=== PATIENT | male | born 1995 | race African-American/Black ===

== ENCOUNTER 2017-01-01 23:46 | Emergency (ER) | payer OTHER ==
[~2017-01-01] VITALS: Ht 175.3 cm; Wt 77.3 kg
[~2017-01-01 23:46] MED LIST: ALBU18HF INH; ALBU2.5V4 INHALATION; ALBU8.5H2 INHALATION; PRED50TA PO
[2017-01-02] VITALS (7 sets, daily range): BP systolic 114–134; BP diastolic 48–78; PULSE 71–128; RESP 18–26; O2SAT 95–100
[2017-01-02] MEDS ORDERED: Albuterol 2.5 mg/3 mL Inhalation Solution NEB ONE ×3 (00:05→03:30)
[2017-01-02] MEDS ORDERED: predniSONE 20 mg Tablet PO ONE (00:05)
[2017-01-02] MEDS ORDERED: Albuterol-Ipratropium 3 mL Inhalation Solution NEB ONE (00:05)
--- NOTE | 2017-01-02 00:05 | ED.REPORT ---
HPI-Dyspnea / Wheezing Date of Service Jan 02, 2017 ED Provider: Calvin Peacock MD Pt is a 21 year old male with a hx of asthma presenting to the ED complaining of SOB and wheezing onset just prior to arrival. He also complains of chest pain , and denies fever. Pt states that he was last on steroids months ago. Nursing Notes Stated Complaint: CHEST PAIN,SHORT OF BREATH,HAS ASTHMA Chief Complaint: Respiratory Complaints Nursing Notes Reviewed: Yes Allergies: Coded Allergies: shellfish derived (Verified Allergy, Unknown, 01/02/17) Scheduled Albuterol HFA (Proair HFA) 8.5 Gm Hfa.aer.ad 2 PUFFS INHALATION Q4H Albuterol Neb Soln (Albuterol Neb Soln) 2.5 Mg/3 Ml Vial.neb 2.5 MG INHALATION Q4H Prednisone (PredniSONE) 50 Mg Tablet 50 MG PO DAILY Prednisone (PredniSONE) 20 Mg Tablet 20 MG PO TID Scheduled PRN Albuterol Neb Soln (Albuterol Neb Soln) 2.5 Mg/3 Ml Vial.neb 2.5 MG INHALATION Q4H PRN PRN For Wheezing Albuterol Sulfate (Ventolin HFA Inhaler) 200 Puff/18 Gm Inhaler 1 PUFF INH Q4 PRN PRN For Wheezing General Time Seen by MD: 00:02 Chief Complaint Asthma attack Hx Obtained From: Patient Arrived By: Walk-in Caused by: Spontaneous Sudden in Onset?: Yes Onset Occurred: Just prior to arrival Context of Onset: Asthma attack Symptom Duration: Since onset Location: : Chest left: Chest right Quality: Painful Severity: Current: Mild Severity: Maximum: Mild Recent Healthcare: No recent doctor visit, No recent hospitalization Similar Sx Previous: Yes Past Medical History Past Medical History Reports Asthma since 2-3 years old Past Surgical History None reported Smoking History Light Tobacco Smoker Social History Reports smoking Marijuana occasionally Alcohol Use: Denies alcohol use Drug Use: THC Occupation Works at [employer] Ambulatory Status Independent Review of Systems Constitutional: Denies: Fever Respiratory: Reports: Shortness of breath, Wheezing Cardiovascular: Reports: Chest pain Complete sys rev & neg: except as marked. Physical Exam Initial Vital Signs Vital Signs (First) Date Time Temp Pulse Resp B/P Pulse Ox O2 Delivery O2 Flow Rate FiO2 01/02/17 00:04 107 25 134/78 95 Room Air 01/02/17 00:34 8 01/02/17 06:16 37.1 Initial VS: Reviewed, Vital signs abnormal Head / Eyes: Atraumatic, Normocephalic, PERRL ENT: Mucous membranes moist, Conjunctiva normal, No scleral icterus Abdomen / GI: Soft, Non-tender, No guarding, No rebound, No distention Extremities: Vascular intact, Neuro intact, No swelling, No tenderness Skin: Warm, Dry, No cyanosis Neurologic: Alert, Oriented, Nonfocal Psychiatric: Mood/affect normal, Behavior normal, Normal thought content General/Constitutional: Awake, Alert, Well appearing Respiratory / Chest: Atraumatic Wheezing / Retractions: Positive: Wheeze insp/exp diffuse (Tight) All cordoba. No focal changes in breath sounds Cardiovascular: Heart rate NL, Regular rhythm, Heart sounds NL, Peripheral circulation NL Interpretation & Diagnostics Lab Results Interpretation Test 01/02/17 00:41 Hold Purple Top Tube Received (Received) Hold Blue Top Tube Received (Received) Hold Red Top Tube Received (Received) Hold [place] Top Tube Received (Received) Hold [place] Top Tube Received (Received) X-Ray Chest Interpretation Chest Xray Interpretation: Normal. Interpretation / Wet Read by: Wet read ED physician Re-Eval/Medical Decision Med Decision/Clinical Course 21-year-old male who presents with severe exacerbation of asthma. He responded very slowly to maximal outpatient management to include IV Solu-Medrol, IV magnesium, and continuous albuterol nebulizer treatments. He will be discharged home on prednisone. He was given refills for his albuterol nebulizer. Re-Evaluation/Progress #1: Time of Eval: 00:33 Patient Status: Condition worsened Re-Evaluation/Progress Note: Pt says he feels worse since nebulizer treatment. Re-Evaluation/Progress #2: Time of Eval: 00:59 Patient Status: Condition improved Re-Evaluation/Progress Note: Pt still has labored breathing. Re-Evaluation/Progress #3: Time of Eval: 03:28 Patient Status: Condition improved Re-Evaluation/Progress Note: Breathing improved Re-Evaluation/Progress #4: Time of Eval: 05:24 Patient Status: Condition improved Re-Evaluation/Progress Note: Pt reports that he is breathing well enough to go home. Discussed plan for discharge. Counseled Regarding: Diagnosis, Lab results, Need for follow-up, When/why to return to ED Discharge & Departure Impression: Primary Impression: Acute asthma exacerbation Asthma severity: unspecified severity Qualified Code: J45.901 - Unspecified asthma with (acute) exacerbation Disposition: Home Discharge Condition All VS Reviewed: Yes Condition: Improved Additional Instructions: Your chest x ray and labs did not show any infectious cause for your shortness of breath today. Return to the ER right away if you develop any new or worsening symptoms. Use the albuterol inhaler or the albuterol nebulizer at home for any continuing shortness of breath. Prednisone 20 mg by mouth 3 times a day for 5 days, #15 prescribed. Call me at [phone] in the hours of 9 PM and 6 AM for the next couple nights if you have any questions or concerns. Referrals: [facility] (PCP) [facility] Scribe Attestation Portions of this note were transcribed by Sergio Cagle. I, Dr. Peacock personally performed the history, physical exam and medical decision-making; I reviewed and confirmed the accuracy of the information in the transcribed note. Signed by: Dudley Del Rio, 01/02/2017 and 0300. copies to: [facility] Calvin Peacock MD Jan 02, 2017 00:05 SERGIO CAGLE Jan 02, 2017 00:07
[2017-01-02] MEDS ORDERED: _Albuterol 2.5 mg/3 mL Neb NEB PRN (00:25)
[2017-01-02] MEDS ORDERED: 0.9% Sodium Chloride 1,000 ML IV ONE (00:43)
[2017-01-02] MEDS ORDERED: Magnesium Sulf 2 Gm/50mL Water 2 GM in IV Premix 1 EACH IV ONE (00:45)
[2017-01-02] MEDS ORDERED: MethylprednisoLONE Sodium Succinate 62.5 mg/mL 2 mL Inj IVPUSH ONE (00:45)
--- NOTE | 2017-01-02 02:03 | ABG ---
DateTimeAnalyzed 01:59:00 -_ pH ____7.368 - 7.350 7.450 pCO2 ___36.3__ -mmHg 35.0 45.0 pO2 ___60.4__ -mmHg 69.0 116 HCO3- ___20.4__ -mmol/L 22.0 26.0 ABE ___-3.8__ -mmol/L -2.0 2.0 tHb ___14.3__ -g/dL O2Hb ___89.1__ -% COHb ____0.5__ -% MetHb ____0.9__ -% sO2 ___90.4__ -% 25.0 FIO2 ___21.0__ -% Drawn By AF - Date/Time Notified____ 02:03:00 -_ Notified By AF - Notified Whom ___Dr. Leibrand - B 761 -mmHg tO2 ___17.9__ -Vol% Juan Jose test _Positive -
[2017-01-02] MEDS ORDERED: ALBU2.5V4 INHALATION (06:17)
[2017-01-02] MEDS ORDERED: PRE20 PO (06:17)
--- NOTE | 2017-01-02 07:58 | DRSVH ---
PROCEDURE: X-RAY CHEST ONE VIEW, PORTABLE ([id number]) INDICATIONS: dyspnea TECHNIQUE: One view of the chest was acquired. COMPARISON: [facility], CR, XR CHEST 2VW, 12/16/2015, 8:11. FINDINGS: Surgical changes and devices: clinical research monitor leads are seen over the chest Lungs and pleura: No pleural effusions or pneumothorax. Lungs are clear. Mediastinum: Mediastinal contours appear normal. Heart size is normal. Bones and chest wall: No suspicious bony lesions. Overlying soft tissues appear unremarkable. IMPRESSION: No acute disease is seen in the chest Dictated by: Rishi Stokes M.D. on 01/02/2017 at 7:56 Approved by: Rishi Stokes M.D. on 01/02/2017 at 7:57
== END 2017-01-02 06:23 | disposition home or self-care (01) ==
LOC: SED 23:46
DX: J45.901 Unspecified asthma with (acute) exacerbation (principal); Z91.013 Allergy to seafood
CPT/HCPCS: 36620; 71010; 82375; 82803; 94640; 94644; 94664; 96361; 96374; 96375; 99285; J2930; J7030; J7613; J7620